=== PATIENT | female | born 1955 | race Caucasian/White ===

== ENCOUNTER 2022-06-07 09:32 | Day surgery (SDC) | payer MEDICARE ==
[~2022-06-07] VITALS: Ht 157.5 cm; Wt 73.5 kg
[2022-06-07] MEDS ORDERED: BUPR150ER (10:24)
[2022-06-07] MEDS ORDERED: CETI5 (10:25)
[2022-06-07] MEDS ORDERED: METF500C (10:26)
[2022-06-07] MEDS ORDERED: DOC250 (10:26)
[2022-06-07] MEDS ORDERED: METO25ER (10:27)
[2022-06-07] MEDS ORDERED: OMEP20ER (10:27)
== END 2022-06-07 12:49 | disposition home or self-care (01) ==
LOC: ORSCSDS 09:32
PROVIDERS: Internal Medicine Gastroenterology
PROC: 0DBE8ZX Excision of Large Intestine, Via Natural or Artificial Opening Endoscopic, Diagnostic (ICD-10-PCS; principal; 2022-06-07 11:15)
PROC: 0DBN8ZX Excision of Sigmoid Colon, Via Natural or Artificial Opening Endoscopic, Diagnostic (ICD-10-PCS; principal; 2022-06-07 11:15)
PROC: 0DBK8ZX Excision of Ascending Colon, Via Natural or Artificial Opening Endoscopic, Diagnostic (ICD-10-PCS; principal; 2022-06-07 11:15)
DX: Z12.11 Encounter for screening for malignant neoplasm of colon (principal); Z86.010 Personal history of colon polyps; D12.1 Benign neoplasm of appendix; D12.2 Benign neoplasm of ascending colon; D12.5 Benign neoplasm of sigmoid colon; K57.30 Diverticulosis of large intestine without perforation or abscess without bleeding; K64.4 Residual hemorrhoidal skin tags; I10 Essential (primary) hypertension; E11.9 Type 2 diabetes mellitus without complications; Z79.899 Other long term (current) drug therapy
CPT/HCPCS: 82947; 88305; J2704; J7120

== ENCOUNTER 2023-01-11 08:20 | Day surgery (SDC) | payer MEDICARE ==
[2023-01-11] VITALS (15 sets, daily range): BP systolic 110–141; BP diastolic 61–109
[~2023-01-11] VITALS: Ht 157.5 cm; Wt 78.9 kg
[~2023-01-11 08:20] MED LIST: ALLEGRA ALLERG180 MG PO; BUPR150ER; CETI5; DOC250; LOSA25 PO; METF500C; METO25ER; OMEP20ER; OZEMPIC0.25 MG/02 SQ
--- NOTE | 2023-01-11 09:09 | NUR ---
Ambulatory in Day Surgery. History, Chart, Medications and Allergies reviewed before start of procedure. Lungs clear T/O to Auscultation. Patient confirms NPO status and agrees with scheduled surgery. Pre-Op teaching done. Pt verbalizes understanding. Patient States Post-Procedure ride home has been arranged. PT BELONGINGS PLACED UNDERNEATH GURNEY FOR SAFEKEEPING. PT TOE RING JEWELRY GIVEN TO SISTER FOR SAFEKEEPING. PT GLASSES AND BOTTOM FLIPPER DENTURES TAKEN TO PACU FOR SAFEKEEPING.
--- NOTE | 2023-01-11 14:12 | NUR ---
Discharge instructions reviewed with patient. Patient verbalizes understanding. Copy given to patient to take home. Instructed to take Heart Medication, Metoprolol when she gets back to hotel. Pt is A-fib with rate 90-teens. BP stable. Instructed if not doing well to go to ER. Patient lives out of town but staying at local hotel. Sister is staying with her.Dressing to procedure site clean, dry, intact with no visible drainage, swelling, erythema or bruising noted. Patient States Post-Procedure ride home has been arranged.
--- NOTE | 2023-01-11 14:15 | NUR ---
Patient up to Ambulate independently. Gait steady. Patient States Post-Procedure ride home has been arranged. Discharged via wheelchair to private car for ride home.
--- NOTE | 2023-01-11 14:17 | NUR ---
Reported off to Moise Shearer RN. Pt is sitting up in bed and tolerated crackers and liquids. Medicated with [place] po x1 tab for pain 09/06.
== END 2023-01-11 14:20 | disposition home or self-care (01) ==
LOC: ORSCMMR 08:20
PROVIDERS: Surgery
PROC: 0WQF0ZZ Repair Abdominal Wall, Open Approach (ICD-10-PCS; principal; 2023-01-11 10:30)
PROC: 0DTJ4ZZ Resection of Appendix, Percutaneous Endoscopic Approach (ICD-10-PCS; principal; 2023-01-11 10:30)
DX: D12.1 Benign neoplasm of appendix (principal); K43.0 Incisional hernia with obstruction, without gangrene; E11.9 Type 2 diabetes mellitus without complications; I48.91 Unspecified atrial fibrillation; Z79.84 Long term (current) use of oral hypoglycemic drugs; Z79.899 Other long term (current) drug therapy
CPT/HCPCS: 82947; 88304; A9270; J0694; J1100; J2250; J2405; J2704; J2710; J2765; J2795; J3010; J7120